=== PATIENT | male | born 1985 | race Caucasian/White ===

== ENCOUNTER 2022-05-07 01:46 | Emergency (ER) | payer OTHER, BC ==
[~2022-05-07] VITALS: Ht 180.3 cm; Wt 181.8 kg
[~2022-05-07 01:46] MED LIST: ASPI-1265 PO; ATOR10TA70 PO; CARV-50 PO; FOLI1TAB27 PO; FURO-150 PO; LISI20TA28 PO; METF-436 PO; NITR0.4T51 SL; SPIR25TA5 PO; THI100T PO
[2022-05-07] MEDS ORDERED: ketorolac trometh. 30mg/ml inj. IV ONE (02:30)
[2022-05-07] MEDS ORDERED: ondansetron/PF 4mg/2ml inj IV ONE (02:30)
[2022-05-07 02:40] LABS: BASOPHILS % (AUTO) 0.4 % (0-1); EOSINOPHILS # (AUTO) 0.2 X10'3 (0-0.9); EOSINOPHILS % (AUTO) 2.8 % (0-6); HEMATOCRIT 40.8 % (42.0-52.0); HEMOGLOBIN 13.9 g/dl (14.0-17.9); LYMPHOCYTES # (AUTO) 1.5 X10'3 (1.1-4.8); LYMPHOCYTES % (AUTO) 17.5 % (21-51); MEAN CORPUSCULAR HEMOGLOBIN 28.5 PG (27.0-31.0); MEAN CORPUSCULAR VOLUME 83.8 FL (78-98); MEAN PLATELET VOLUME 8.4 FL (7.4-10.4); MONOCYTES # (AUTO) 0.9 X10'3 (0-0.9); MONOCYTES % (AUTO) 10.2 % (2-12); NEUTROPHILS % (AUTO) 69.1 % (42-75); PLATELET COUNT 267 X10'3 (140-440); RED BLOOD COUNT 4.87 X10'6 (4.70-6.10); RED CELL DISTRIBUTION WIDTH 14.3 % (11.5-14.5); WHITE BLOOD COUNT 8.7 X10'3 (4.5-11.0)
[2022-05-07 02:50] LABS: ALANINE AMINOTRANSFERASE 30 U/L (12-78); ALBUMIN 3.5 G/DL (3.4-5.0); ALBUMIN/GLOBULIN RATIO 0.8 (1.1-1.5); ALKALINE PHOSPHATASE 66 IU/L (46-116); ANION GAP 5 (8-16); ASPARTATE AMINO TRANSFERASE 14 U/L (10-37); BILIRUBIN,TOTAL 0.4 MG/DL (0.1-1.0); BLOOD UREA NITROGEN 10 MG/DL (7-18); BUN/CREATININE RATIO 9.2 (5.4-32.0); CALCIUM 8.6 MG/DL (8.5-10.1); CHLORIDE 102 MMOL/L (99-107); CREATININE 1.09 MG/DL (0.60-1.10); ETHANOL < 0.010 GM/DL (0.0-0.010); GLUCOSE 134 MG/DL (70-104); LIPASE 68 U/L (73-393); SODIUM 136 MMOL/L (135-145); TOTAL CARBON DIOXIDE 29.1 MMOL/L (24-32); TOTAL PROTEIN 7.8 G/DL (6.4-8.2); eGFR 76 ML/MIN
[2022-05-07 03:52] LABS: CLARITY,URINE CLOUDY (Clear); COLOR,URINE YELLOW (Yellow); GLUCOSE, URINE NEGATIVE (Neg); KETONES,URINE NEGATIVE (Neg); LEUKOCYTE ESTERASE ,URINE NEGATIVE (Neg); NITRITES, URINE NEGATIVE (Neg); OCCULT BLOOD,URINE LARGE (Neg); PROTEIN,URINE TRACE mg/dl (Neg); UROBILINOGEN,URINE 0.2 E.U/dL (0.2-1.0)
[2022-05-07 03:57] LABS: UA COLLECTION TYPE CLN CATCH MIDSTREAM
[2022-05-07 03:58] LABS: BACTERIA,URINE NONE SEEN /HPF (Neg); SQUAMOUS EPITHELIAL CELL,UR NONE SEEN /LPF (FEW); WBC,URINE NONE SEEN /HPF (0-4)
[2022-05-07 03:59] LABS: AMORPHOUS URATES 4+
[2022-05-07] MEDS ORDERED: ONDA4TAB12 PO (04:04)
[2022-05-07] MEDS ORDERED: HYDR-3965 PO (04:04)
[2022-05-07 04:16] VITALS: BP 111/55
== END 2022-05-07 04:17 | disposition home or self-care (01) ==
LOC: ER 01:47
DX: R10.9 Unspecified abdominal pain (principal); I10 Essential (primary) hypertension; E11.9 Type 2 diabetes mellitus without complications; Z87.891 Personal history of nicotine dependence
CPT/HCPCS: 36415; 80053; 80320; 81001; 83690; 85025; 96374; 96375; 99284; J1885; J2405

== ENCOUNTER 2025-01-08 08:25 | Emergency (ER) | payer BC, OTHER ==
[~2025-01-08] VITALS: Ht 177.8 cm; Wt 192.8 kg
[~2025-01-08 08:25] MED LIST changes: +ONDA-243 PO
[2025-01-08] MEDS: TETanus/Pertussis (Acell)/Diphther VAC/PF (Tdap-Adult) 0.5ml syringe IMVAC ONE (09:25)
[2025-01-08 10:05] VITALS: BP 134/66; PULSE 83; RESP 16; TEMP 98.7; O2SAT 97
== END 2025-01-08 10:07 | disposition home or self-care (01) ==
LOC: ER 08:25
DX: S50.01XA Contusion of right elbow, initial encounter (principal); E11.9 Type 2 diabetes mellitus without complications; G47.30 Sleep apnea, unspecified; I10 Essential (primary) hypertension; Z79.82 Long term (current) use of aspirin; X58.XXXA Exposure to other specified factors, initial encounter; Y93.89 Activity, other specified; Y92.89 Other specified places as the place of occurrence of the external cause; Y99.8 Other external cause status
CPT/HCPCS: 73090; 90471; 90715; 99284